=== PATIENT | male | born 1990 | race Caucasian/White ===

== ENCOUNTER 2017-08-11 21:16 | Inpatient (IN) | payer OTHER ==
[~2017-08-11] VITALS: Ht 175.3 cm; Wt 67.4 kg
[~2017-08-11 21:16] MED LIST: LATU80TA PO
[2017-08-11 21:18] VITALS: BP 143/83; PULSE 134; RESP 20; TEMP 98.6; O2SAT 100
[2017-08-11] MEDS ORDERED: LURA1TAB2 PO (21:38)
[2017-08-11] MEDS ORDERED: SODIUM CHLOR 0.9% 1000 ML INJ 1,000 ML IV SCH (21:49)
--- NOTE | 2017-08-11 21:52 | PD ---
HPI Chief Complaint: Psychiatric Symptoms Time Seen by Provider: 21:29 Travel History International Travel<30 days: No Contact w/Intl Traveler<30days: No Traveled to known affect area: No History of Present Illness HPI Patient comes in with parents requesting voluntary psychiatric evaluation. Patient denies any complaints or concerns. States he feels fine. Denies any homicidal or suicidal ideations. Denies any chest pain, shortness of breath, fevers, no pain, headaches, numbness or tingling anywhere. Patient mother reports patient was on medication that was prescribed last year for similar symptoms. Patient has been out of his medication since November secondary to losing his insurance. Mother states he's been doing fine until the last couple of days when he is been acting similar to he was a year ago when symptoms began. Mother reports patient is been acting inappropriately and will take off running down the street for no reason. [facility] Past Medical History Diabetes: No Diminished Hearing: No Insomnia: Yes Psychiatric: Yes (PREVIOUS PSYCH ADMISSION, BIPOLAR, SCHITZOPHRENIA) Social History Alcohol Use: No Tobacco Use: No Substance Use: No Allergies-Medications (Allergen,Severity, Reaction): Coded Allergies: No Known Allergies (Unverified , 06/26/15) Reported Meds & Prescriptions Reported Meds & Active Scripts Active Reported Latuda (Lurasidone) 60 Mg Tab 60 Mg PO DAILY Review of Systems Except as stated in HPI: all other systems reviewed are Neg Physical Exam Narrative GENERAL: Well-developed, well nourished, in no acute distress, and non-ill appearing. SKIN: Focused skin assessment warm and dry. HEAD: Atraumatic. Normocephalic. EYES: Pupils equal and round. EOMI. No scleral icterus. No injection or drainage. ENT: No nasal bleeding or discharge. Mucous membranes pink and moist. NECK: Trachea midline. No JVD. Supple. No nuclear rigidity. CARDIOVASCULAR: Regular rate and rhythm. No murmur appreciated. RESPIRATORY: No accessory muscle use. No respiratory distress. Clear to auscultation. Breath sounds equal bilaterally. MUSCULOSKELETAL: No obvious deformities. No clubbing. No cyanosis. No edema. Full range of motion. NEUROLOGICAL: Awake and alert. No obvious cranial nerve deficits. Motor grossly within normal limits. Normal speech. PSYCHIATRIC: Appropriate mood and affect; insight and judgment normal. Data Data Last Documented VS Vital Signs Date Time Temp Pulse Resp B/P (MAP) Pulse Ox O2 Delivery O2 Flow Rate FiO2 08/11/17 23:09 98 Room Air 08/11/17 21:18 98.6 134 20 Orders Orders Complete Blood Count With Diff (08/11/17 21:39) Comprehensive Metabolic Panel (08/11/17 21:39) Psych Screen (08/11/17 21:39) Drug Screen, Random Urine (08/11/17 21:39) Alcohol (Ethanol) (08/11/17 21:39) Salicylates (Aspirin) (08/11/17 21:39) Tylenol (Acetaminophen) (08/11/17 21:39) Iv Access Insert/Monitor (08/11/17 21:49) Ecg Monitoring (08/11/17 21:49) Oximetry (08/11/17 21:49) Sodium Chlor 0.9% 1000 Ml Inj (Ns 1000 M (08/11/17 21:49) Sodium Chloride 0.9% Flush (Ns Flush) (08/11/17 22:00) Potassium Chloride (Kcl) (08/11/17 23:30) Lorazepam (Ativan) (08/11/17 23:30) Labs Laboratory Tests Test 08/11/17 21:50 08/11/17 23:40 White Blood Count 8.4 TH/MM3 Red Blood Count 4.95 MIL/MM3 Hemoglobin 14.6 GM/DL Hematocrit 42.0 % Mean Corpuscular Volume 84.8 FL Mean Corpuscular Hemoglobin 29.5 PG Mean Corpuscular Hemoglobin Concent 34.7 % Red Cell Distribution Width 12.8 % Platelet Count 247 TH/MM3 Mean Platelet Volume 7.9 FL Neutrophils (%) (Auto) 69.4 % Lymphocytes (%) (Auto) 21.8 % Monocytes (%) (Auto) 8.2 % Eosinophils (%) (Auto) 0.1 % Basophils (%) (Auto) 0.5 % Neutrophils # (Auto) 5.8 TH/MM3 Lymphocytes # (Auto) 1.8 TH/MM3 Monocytes # (Auto) 0.7 TH/MM3 Eosinophils # (Auto) 0.0 TH/MM3 Basophils # (Auto) 0.0 TH/MM3 CBC Comment DIFF FINAL Differential Comment Blood Urea Nitrogen 8 MG/DL Creatinine 1.09 MG/DL Random Glucose 110 MG/DL Total Protein 7.5 GM/DL Albumin 4.7 GM/DL Calcium Level 9.3 MG/DL Alkaline Phosphatase 71 U/L Aspartate Amino Transf (AST/SGOT) 14 U/L Alanine Aminotransferase (ALT/SGPT) 14 U/L Total Bilirubin 0.8 MG/DL Sodium Level 140 MEQ/L Potassium Level 3.0 MEQ/L Chloride Level 104 MEQ/L Carbon Dioxide Level 25.2 MEQ/L Anion Gap 11 MEQ/L Estimat Glomerular Filtration Rate 82 ML/MIN Salicylates Level LESS THAN 1.7 MG/DL Acetaminophen Level LESS THAN 2.0 MCG/ML Ethyl Alcohol Level LESS THAN 3 MG/DL Urine Opiates Screen NEG Urine Barbiturates Screen NEG Urine Amphetamines Screen NEG Urine Benzodiazepines Screen NEG Urine Cocaine Screen NEG Urine Cannabinoids Screen NEG MDM Medical Decision Making Medical Screen Exam Complete: Yes Emergency Medical Condition: Yes Differential Diagnosis Acute psychosis, schizophrenia, anxiety, metabolic disturbance, substance induced mood disorder, nonspecific mood disorder, other Narrative Course Patient was seen and examined. Labs were obtained and reviewed. Patient potassium was replaced with oral potassium. Patient medically cleared for further treatment and evaluation by psych. Final disposition per psych. Diagnosis Primary Impression: Medical clearance for psychiatric admission Condition: Stable Marcin Nicole Aug 11, 2017 21:52
[2017-08-11] MEDS ORDERED: SODIUM CHLORIDE 0.9% FLUSH 10 ML FLUSH IV FLUSH PRN (22:00)
[2017-08-11 22:36] LABS: AUTOMATED NEUTROPHIL # 5.8 TH/MM3 (1.8-7.7); BASOPHIL % 0.5 % (0.0-2.0); EOSINOPHIL % 0.1 % (0.0-4.0); HEMO FLAGS DIFF FINAL; LYMPH % 21.8 % (9.0-44.0); LYMPHOCYTE # 1.8 TH/MM3 (1.0-4.8); MEAN CELL VOLUME 84.8 FL (80.0-100.0); MEAN CORPUSCULAR HEMOGLOBIN 29.5 PG (27.0-34.0); MEAN CORPUSCULAR HGB CONC 34.7 % (32.0-36.0); MONO % 8.2 % (0.0-8.0); NEUT % 69.4 % (16.0-70.0); PLATELET COUNT 247 TH/MM3 (150-450); RED BLOOD COUNT 4.95 MIL/MM3 (4.50-5.90); RED CELL DISTRIBUTION WIDTH 12.8 % (11.6-17.2); WHITE BLOOD COUNT 8.4 TH/MM3 (4.0-11.0)
[2017-08-11 22:50] LABS: ALCOHOL LESS THAN 3 MG/DL (0-5); ALT (GPT) 14 U/L (12-78); ANION GAP 11 MEQ/L (5-15); AST (GOT) 14 U/L (15-37); BICARBONATE 25.2 MEQ/L (21.0-32.0); BLOOD UREA NITROGEN 8 MG/DL (7-18); CHLORIDE 104 MEQ/L (98-107); GLOMERULAR FILTRATION RATE 82 ML/MIN (>89); SODIUM (NA) 140 MEQ/L (136-145)
[2017-08-11 22:52] LABS: ALKALINE PHOSPHATASE 71 U/L (45-117); TOTAL BILIRUBIN ADULT 0.8 MG/DL (0.2-1.0)
[2017-08-11 22:57] LABS: ACETAMINOPHEN LESS THAN 2.0 MCG/ML (10.0-30.0)
[2017-08-11 23:09] VITALS: O2SAT 98
[2017-08-11] MEDS ORDERED: POTASSIUM CHLORIDE 20 MEQ CONTROLLED RELEASE TAB PO ONE (23:30)
[2017-08-11] MEDS ORDERED: LORazepam 1 MG TAB PO ONE (23:30)
[2017-08-12 00:32] VITALS: BP 133/80; PULSE 125; RESP 18; TEMP 99.2; O2SAT 98
[2017-08-12] MEDS ORDERED: OLANZapine ODT 10 MG TAB PO ONE ×2 (01:30→22:15)
--- NOTE | 2017-08-12 01:30 | PD ---
Data Data Last Documented VS Vital Signs Date Time Temp Pulse Resp B/P (MAP) Pulse Ox O2 Delivery O2 Flow Rate FiO2 08/12/17 00:32 99.2 125 18 133/80 (97) 98 Room Air Orders Orders Complete Blood Count With Diff (08/11/17 21:39) Comprehensive Metabolic Panel (08/11/17 21:39) Psych Screen (08/11/17 21:39) Drug Screen, Random Urine (08/11/17 21:39) Alcohol (Ethanol) (08/11/17 21:39) Salicylates (Aspirin) (08/11/17 21:39) Tylenol (Acetaminophen) (08/11/17 21:39) Iv Access Insert/Monitor (08/11/17 21:49) Ecg Monitoring (08/11/17 21:49) Oximetry (08/11/17 21:49) Sodium Chlor 0.9% 1000 Ml Inj (Ns 1000 M (08/11/17 21:49) Sodium Chloride 0.9% Flush (Ns Flush) (08/11/17 22:00) Potassium Chloride (Kcl) (08/11/17 23:30) Lorazepam (Ativan) (08/11/17 23:30) Olanzapine Odt (Zyprexa Zydis Odt) (08/12/17 01:30) Labs Laboratory Tests Test 08/11/17 21:50 08/11/17 23:40 White Blood Count 8.4 TH/MM3 Red Blood Count 4.95 MIL/MM3 Hemoglobin 14.6 GM/DL Hematocrit 42.0 % Mean Corpuscular Volume 84.8 FL Mean Corpuscular Hemoglobin 29.5 PG Mean Corpuscular Hemoglobin Concent 34.7 % Red Cell Distribution Width 12.8 % Platelet Count 247 TH/MM3 Mean Platelet Volume 7.9 FL Neutrophils (%) (Auto) 69.4 % Lymphocytes (%) (Auto) 21.8 % Monocytes (%) (Auto) 8.2 % Eosinophils (%) (Auto) 0.1 % Basophils (%) (Auto) 0.5 % Neutrophils # (Auto) 5.8 TH/MM3 Lymphocytes # (Auto) 1.8 TH/MM3 Monocytes # (Auto) 0.7 TH/MM3 Eosinophils # (Auto) 0.0 TH/MM3 Basophils # (Auto) 0.0 TH/MM3 CBC Comment DIFF FINAL Differential Comment Blood Urea Nitrogen 8 MG/DL Creatinine 1.09 MG/DL Random Glucose 110 MG/DL Total Protein 7.5 GM/DL Albumin 4.7 GM/DL Calcium Level 9.3 MG/DL Alkaline Phosphatase 71 U/L Aspartate Amino Transf (AST/SGOT) 14 U/L Alanine Aminotransferase (ALT/SGPT) 14 U/L Total Bilirubin 0.8 MG/DL Sodium Level 140 MEQ/L Potassium Level 3.0 MEQ/L Chloride Level 104 MEQ/L Carbon Dioxide Level 25.2 MEQ/L Anion Gap 11 MEQ/L Estimat Glomerular Filtration Rate 82 ML/MIN Salicylates Level LESS THAN 1.7 MG/DL Acetaminophen Level LESS THAN 2.0 MCG/ML Ethyl Alcohol Level LESS THAN 3 MG/DL Urine Opiates Screen NEG Urine Barbiturates Screen NEG Urine Amphetamines Screen NEG Urine Benzodiazepines Screen NEG Urine Cocaine Screen NEG Urine Cannabinoids Screen NEG MDM Supervised Visit with INOCENTE: Yes Narrative Course 26-year-old male with a history of schizophrenia was brought in by parents for voluntary status parents of left and the patient wants to leave. After discussing with multiple providers including Moses Nicole PA-C as well as the psychiatric screener they believe that the patient is Mckeon act criteria. On my examination the patient is highly tangential states that he feels fine now. Hard to get him to stay on task and he doesn't really know why he is here. When confronted with the information that parents provided about him being very bizarre behavior he shrugs it off and says I'm fine now. 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 In my professional opinion the patient is unable to make his own decision to leave the hospital and therefore was placed under Mckeon act. Medically stable for psychiatric evaluation and remains in J pod. Diagnosis Primary Impression: Medical clearance for psychiatric admission Condition: Stable Musa Jiang MD Aug 12, 2017 01:30
[2017-08-12 02:17] VITALS: BP 121/65; PULSE 106; RESP 18; TEMP 98.9; O2SAT 100
[2017-08-12 06:17] VITALS: BP 129/75; PULSE 115; RESP 16; TEMP 98.2; O2SAT 99
--- NOTE | 2017-08-12 09:43 | MB ---
cc: EZEQUIEL PARADA DATE OF CONSULTATION: 08/12/2017 REQUESTING PHYSICIAN: Emergency department. REASON FOR CONSULTATION: Mckeon ACT HISTORY OF PRESENT ILLNESS Mr. Navarrete is a 26-year-old male with a chart history of schizophrenia, form disorder who presented on a voluntary basis with his parents for psychiatric evaluation. The patient's mother told the emergency department provider that the patient has been acting inappropriately and will take off running down the street for no reason. Reviewing the electronic medical record I note the patient was admitted here in August 2014 for first break psychosis. The patient seen and examined. Chart reviewed. Case discussed with nursing staff who reports that the patient has been wandering and internally stimulated while under observation in the J pod. On my evaluation this morning, the patient continues in this vein. He does appear frankly internally stimulated. Thought process is somewhat disorganized. He is fairly disheveled. He is tending to minimize the circumstances of his presentation here in service of obtaining discharge from the emergency room. He says that his mood is "really good." He maintains that he is sleeping and eating fine. He denies any paranoia, thought insertion or withdrawal. He denies any audiovisual hallucinations but appears internally stimulated. I can elicit no hypomanic or manic symptoms. No depressive symptoms elicited. He denies any other he does not report any suicidal or homicidal ideation but seems unreliable to contract for safety. The remainder of the psychiatric ROS is negative. The patient has no physical complaints. PAST PSYCHIATRIC HISTORY The patient reports a history of "psychotic problems." He is not currently under the care of a psychiatrist. He cannot remember when he was last psychiatrically admitted. When I ask about prior suicide attempts. The patient says "maybe we do." FAMILY HISTORY The patient reports a family history of psychotic illness in his brother and sister. CHEMICAL DEPENDENCY HISTORY: The patient denies any abuse of drugs or alcohol. SOCIAL HISTORY The patient reports that his that he lives with his mother and father but then goes onto say that they maybe have past on by now. He is single with no children. He is unsure how far he got in school. He does say that he use to work at a [employer] line. He denies any legal issues. Denies any access to guns or firearms. PAST MEDICAL HISTORY The patient denies any history of medical problems. REVIEW OF SYSTEMS Except as noted in HPI, this is negative. PHYSICAL EXAMINATION VITAL SIGNS: Temperature 98.2, pulse 115, respirations 16, blood pressure 129/75, pulse oximetry 99% on room air. IN GENERAL: Physical examination was completed by the emergency department provider. On my examination today, the patient appears to be in no acute physical distress. No motor abnormalities noted. Labs and vitals reviewed her laboratories reviewed: CBC unremarkable. CMP reveals mild hypokalemia at 3.0 status post now which has been repleted. GFR is also mildly decreased at 82. Urine toxicology negative. Alcohol level undetectable. MENTAL STATUS EXAM The patient is in hospital attire. He is disheveled. He is awake and alert and oriented to person and hospital at least. No abnormal motor movements noted. Speech is rambling and vague but within normal limits for rate, tone and volume. Language and fund of knowledge seem approximately average, although assessment is somewhat difficult because of his psychotic symptoms. Memory seems poor presently but this is also likely impacted by his psychotic symptoms. The patient reports good mood, but affect is blunted, tending towards flat. Thought process circumstantial, at times somewhat frankly disorganized. No delusions elicited. The patient denies audiovisual hallucinations but appears frankly internally stimulated. No reported suicidal or homicidal ideation but the patient seems unreliable to contract for safety. Insight and judgment poor. ASSESSMENT/PLAN 1. Other psychotic disorder, F 28, rule out schizophrenia. This is a 26-year-old male with psychiatric history as detailed above who presents on a voluntary basis for psychiatric evaluation. He was placed under a Mckeon ACT by the emergency department provider. On my evaluation today, the patient remains floridly psychotic. I do note that the patient required Zyprexa IM overnight. I see no indication to lift the Mckeon ACT at this time. 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 He will be placed on the ACT wait list by the nursing staff with plans to transfer to ACT under the Mckeon ACT for psychiatric stabilization once a bed is available. Thank you very much for this consultation. Ezequiel Perry /7:31 AM /9:20 AM PABLITO
[2017-08-12 13:42] VITALS: BP 135/86; PULSE 107; RESP 17; TEMP 97.6; O2SAT 98
[2017-08-12 22:10] VITALS: BP 192/97; PULSE 118; RESP 17; TEMP 99; O2SAT 100
[2017-08-13 02:17] VITALS: RESP 16
[2017-08-13 06:41] VITALS: BP 130/77; PULSE 92; RESP 17; TEMP 98.5; O2SAT 99
[2017-08-13 10:58] VITALS: BP 151/88; PULSE 108; RESP 18
[2017-08-13] MEDS ORDERED: ACETAMINOPHEN 325 MG TAB PO PRN (15:30)
[2017-08-13] MEDS ORDERED: LORazepam 2 MG/ML VIAL IM PRN (15:30)
[2017-08-13] MEDS ORDERED: traZODone HCL 50 MG TAB PO PRN (15:30)
[2017-08-13] MEDS ORDERED: LORazepam 1 MG TAB PO PRN (15:30)
[2017-08-13] MEDS ORDERED: ALUMINUM/MAGNESIUM/SIMETH 30 ML CUP PO PRN (15:30)
[2017-08-13] MEDS ORDERED: diphenhydrAMINE HCL 50 MG CAP PO PRN (15:30)
[2017-08-13] MEDS ORDERED: diphenhydrAMINE HCL 50 MG/ML VIAL IM PRN (15:30)
[2017-08-13] MEDS ORDERED: MAGNESIUM HYDROXIDE SUSP 30 ML CUP PO PRN (15:30)
[2017-08-13 16:32] VITALS: BP 130/78; PULSE 95; RESP 18; O2SAT 99
--- NOTE | 2017-08-13 20:46 | EKG ---
Date Performed: 08/13/2017 Time Performed: 16:46:31 PTAGE: 26 years EKG: Sinus rhythm BORDERLINE RIGHT AXIS DEVIATION BORDERLINE ECG PREVIOUS TRACING : 08/31/2014 17.10 No significant change from previous tracing noted. DOCTOR: Ed Li Interpretating Date/Time 08/13/2017 20:44:44
[2017-08-13] MEDS ORDERED: OLANZapine ODT 10 MG TAB PO SCH (21:00)
[2017-08-14 06:04] VITALS: BP 122/65; PULSE 77; RESP 17; TEMP 97.8; O2SAT 100
[2017-08-14 07:52] LABS: ANION GAP 6 MEQ/L (5-15); BICARBONATE 29.7 MEQ/L (21.0-32.0); BLOOD UREA NITROGEN 9 MG/DL (7-18); CHLORIDE 106 MEQ/L (98-107); GLOMERULAR FILTRATION RATE 84 ML/MIN (>89); POTASSIUM 3.8 MEQ/L (3.5-5.1); SODIUM (NA) 142 MEQ/L (136-145)
[2017-08-14 07:55] LABS: HDL CHOLESTEROL 45.3 MG/DL (40.0-60.0); LDL CHOLESTEROL 54 MG/DL (0-99)
[2017-08-14] MEDS ORDERED: NICOTINE 21 MG/24 HR PATCH T-DERMAL SCH (09:00)
[2017-08-14] MEDS ORDERED: REMOVE OLD PATCH T-DERMAL SCH (09:00)
[2017-08-14] MEDS ORDERED: INFLUENZA VIRUS VACCINE (QUADRIVALENT) 0.5 ML SYR IM ONE (10:00)
--- NOTE | 2017-08-14 10:09 | HHI.HP ---
Provisional Diagnosis Admission Date Aug 13, 2017 at 15:25 Lind[place] I. 1. Other psychotic disorder, now stabilized Lind[place] II. Deferred Certification of Person's Competence To Provide Express and Informed Consent I have personally examined Juliocesar Navarrete , a person being served at [facility] on, Aug 14, 2017 10:06. Express and informed consent means consent voluntarily given in writing, by a competent person, after sufficient explanation and disclosure of the subject matter involved to enable the person to make a knowing and willful decision without any element of force, fraud, deceit, duress, or other form of constraint or coercion. This person is 18 years of age or older, is not now known to be incompetent to consent to treatment with a guardian advocate, and does not have a health care surrogate or proxy currently making medical treatment decisions. I have found this person to be one of the following: [x] Competent to provide express and informed consent, as defined above, for voluntary admission to this facility and is competent to provide express and informed consent for treatment. He/she has the consistent capacity to make well reasoned, willful, and knowing decisions concerning his or her medical or mental health treatment. The person fully and consistently understands the purpose of the admission for examination/placement and is fully capable of personally exercising all rights [place] Incompetent to provide express and informed consent to voluntary admission, and this is incompetent to provide express and informed consent to treatment. The person must be transferred to involuntary status and a petition for a guardian advocate filed with the Circuit Court. [] Refusing to provide express and informed consent to voluntary admission but is competent to provide express and informed consent for treatment. The person must be discharged or transferred to involuntary status. Form shall be completed within 24 hours of a person's arrival at the receiving facility and filed in the clinical record of each person: 1. Admitted on a voluntary basis 2. Permitted to provide express and informed consent to his/her own treatment 3. Allowed to transfer from involuntary to voluntary status 4. Prior to permitting a person to consent to his or her own treatment after having been previously found incompetent to consent to treatment. History of Present Illness Capacity: Has Capacity Psych Chief Complaint: Psychosis HPI From my initial consultation 08/12: HISTORY OF PRESENT ILLNESS Mr. Navarrete is a 26-year-old male with a chart history of [schizophreniform] disorder who presented on a voluntary basis with his parents for psychiatric evaluation. The patient's mother told the emergency department provider that the patient has been acting inappropriately and will take off running down the street for no reason. Reviewing the electronic medical record I note the patient was admitted here in August 2014 for first break psychosis. The patient seen and examined. Chart reviewed. Case discussed with nursing staff who reports that the patient has been wandering and internally stimulated while under observation in the J pod. On my evaluation this morning, the patient continues in this vein. He does appear frankly internally stimulated. Thought process is somewhat disorganized. He is fairly disheveled. He is tending to minimize the circumstances of his presentation here in service of obtaining discharge from the emergency room. He says that his mood is "really good." He maintains that he is sleeping and eating fine. He denies any paranoia, thought insertion or withdrawal. He denies any audiovisual hallucinations but appears internally stimulated. I can elicit no hypomanic or manic symptoms. No depressive symptoms elicited. He denies any other he does not report any suicidal or homicidal ideation but seems unreliable to contract for safety. The remainder of the psychiatric ROS is negative. The patient has no physical complaints. PAST PSYCHIATRIC HISTORY The patient reports a history of "psychotic problems." He is not currently under the care of a psychiatrist. He cannot remember when he was last psychiatrically admitted. When I ask about prior suicide attempts. The patient says "maybe we do." FAMILY HISTORY The patient reports a family history of psychotic illness in his brother and sister. CHEMICAL DEPENDENCY HISTORY: The patient denies any abuse of drugs or alcohol. SOCIAL HISTORY The patient reports that his that he lives with his mother and father but then goes onto say that they maybe have past on by now. He is single with no children. He is unsure how far he got in school. He does say that he use to work at a [employer]. He denies any legal issues. Denies any access to guns or firearms. On my examination today, 08/14: Patient seen and examined with nurse. Chart reviewed. Patient was started on Zyprexa 10 mg at bedtime in the ED by the ED provider, and I continued this last night. Case discussed with nursing staff. Patient has been very well behaved on the unit and cooperative with care. There has been no evidence of any suicidality or homicidality on the inpatient unit. Case discussed with counselor. Patient's Mckeon act will overnight tonight. For me today, the patient is calm and cooperative with exam. His thought process is linear and there is no evidence of ongoing impairment in reality construction. He is requesting discharge from the inpatient psychiatric unit today. He denies any suicidal or homicidal ideation, intent or plan on direct questioning and contracts for safety. Mood is stable and I can elicit no depressive or hypomanic/manic symptoms. He reports that he slept well overnight. He denies any audiovisual hallucinations. I can elicit no delusional material from the patient. He denies any side effects from medications, and he is agreeable to continuing Zyprexa on an outpatient basis. He has no physical complaints. Review of Systems Except as stated in HPI: all other systems reviewed are Neg Past Psych History Psychological trauma history No reported trauma history to me Violence risk - others (6 mos) Lower imminent risk. Denies homicidal ideation. No known history of violent behavior. No unstable mental illness in this patient at this time that would confer risk for violence. No impairment in reality construction, no decompensated psychosis. Violence risk - self (6 mos) Lower imminent risk. Denies suicidal ideation. No reported history of previous suicide attempts. No unstable mental illness that would confer risk for suicide. Substance Abuse History Drugs/Alcohol past 12 months See above Past Family Social History Coded Allergies: No Known Allergies (Unverified Allergy, Unknown, 08/13/17) Past Medical History See electronic medical record Active Scripts Olanzapine (Zyprexa) 10 Mg Tab, 10 MG PO HS for Mental Health for 15 Days, TAB 1 Refill Prov:Ezequiel Escoto MD 08/14/17 Reported Medications Lurasidone (Latuda) 60 Mg Tab, 60 MG PO DAILY, #30 TAB 0 Refills 08/11/17 Discontinued Scripts Lurasidone Hcl (Latuda) 80 Mg Tab, 80 MG PO DAILY for mental health, #30 TAB 2 Refills Prov:Romario Adams MD 06/26/15 Current Medications Medications (Trade) Dose Ordered Sig/Christina Route Start Time Stop Time Status Last Admin (NS Flush) 2 ml UNSCH PRN IV FLUSH 08/11/17 22:00 (Ativan) 1 mg Q6H PRN PO 08/13/17 15:30 (Ativan Inj) 1 mg Q6H PRN IM 08/13/17 15:30 (Benadryl) 50 mg Q6H PRN PO 08/13/17 15:30 (Benadryl Inj) 50 mg Q6H PRN IM 08/13/17 15:30 (Tylenol) 650 mg Q4H PRN PO 08/13/17 15:30 (Milk Of Magnesia Liq) 30 ml DAILY PRN PO 08/13/17 15:30 (Mag-Al Plus Susp Liq) 30 ml Q6H PRN PO 08/13/17 15:30 (Habitrol 21 Mg Patch.24 Hr) 1 patch DAILY T-DERMAL 08/14/17 09:00 (Desyrel) 50 mg HS PRN PO 08/13/17 15:30 Miscellaneous Information 1 DAILY T-DERMAL 08/14/17 09:00 (ZyPREXA ZYDIS ODT) 10 mg HS PO 08/13/17 21:00 08/13/17 21:39 Family Psych History See above Social History See above Patient's Strengths (min. 2) Good response to antipsychotic. Verbally fluent. Physical Exam Physical examination was completed by the ED provider. On my examination today , the patient appears to be at no physical distress. No hand tremor, no dystonia, no dyskinesia, no other motor abnormalities noted. Labs and vitals reviewed: Vital Signs Vital Signs Date Time Temp Pulse Resp B/P (MAP) Pulse Ox O2 Delivery O2 Flow Rate FiO2 08/14/17 06:04 97.8 77 17 122/65 (84) 100 08/13/17 10:58 Room Air Lab Results Item Value Date Time White Blood Count 8.4 TH/MM3 08/11/172149 Hemoglobin 14.6 GM/DL 08/11/172149 Platelet Count 247 TH/MM3 08/11/172149 Sodium Level 142 MEQ/L 08/14/17 0658 Potassium Level 3.8 MEQ/L 08/14/1758 Chloride Level 106 MEQ/L 08/14/17 0658 Carbon Dioxide Level 29.7 MEQ/L 08/14/17 0658 Blood Urea Nitrogen 9 MG/DL 08/14/17 0658 Creatinine 1.06 MG/DL 08/14/17 0658 Estimat Glomerular Filtration Rate 84 ML/MIN L 08/14/17 0658 Aspartate Amino Transf (AST/SGOT) 14 U/L L 08/11/170 Alanine Aminotransferase (ALT/SGPT) 14 U/L 08/11/172149 Alkaline Phosphatase 71 U/L 08/11/172149 Urine Opiates Screen NEG 08/11/17 2340 Urine Barbiturates Screen NEG 08/11/170 Urine Amphetamines Screen NEG 08/11/17 2340 Urine Benzodiazepines Screen NEG 08/11/170 Urine Cocaine Screen NEG 08/11/172339 Urine Cannabinoids Screen NEG 08/11/172339 Ethyl Alcohol Level LESS THAN 3 MG/DL 08/11/172149 Hemoglobin A1c is presently pending. Mental Status Examination Appearance: Appropriate (in hospital attire. Well groomed.) Consciousness: Alert Orientation: x4 Motor Activity: Normal gait Speech: Unremarkable Language: Adequate Fund of Knowledge: Adequate Attention and Concentration: Adequate Memory: Unremarkable Mood: Appropriate, Good Affect: Appropriate (full and reactive) Thought Process & Associations: Intact, Logical, Goal directed, Linear Thought Content: Appropriate Hallucination Type: None Delusion Type: None Suicidal Ideation: No Suicidal Plan: No Suicidal Intention: No Homicidal Ideation: No Homicidal Plan: No Homicidal Intention: No Insight: Fair Judgment: Adequate (fair) Assessment & Plan Problem List: (1) Psychosis ICD Codes: F29 - Psychosis Status: Acute Assessment & Plan 26-year-old male with psychiatric history as detailed above who presented initially under the Mckeon act. Mckeon act will this evening. Patient was started on Zyprexa in the emergency department, and his presenting psychosis has stabilized nicely on this medication. Presently, there is no unstable mental illness as defined under the Mckeon act in this patient. He is denying suicidal or homicidal ideation and is now reliable to contract for safety. He appears to be attending to his basic needs. Synthesizing this information and weighing the relevant factors, I conciliation court judge that the patient does not meet criteria for involuntary psychiatric hospitalization. I have recommended that he remain on the unit voluntarily for further observation. I have suggested an ancillary goal of remaining on the unit might be to transition to another antipsychotic with a more readily available long-acting injectable formulation as I think he might benefit from such an agent. However , the patient declines to remain on the unit voluntarily; he wishes to continue with oral Zyprexa for now. I must therefore arrange for his discharge home in stable condition with psychiatric follow-up as arranged by counselor. I have instructed the counselor to reach out to the patient's parents with whom he lives with the patient's permission to discuss the case. Patient is to follow- up psychiatrically as arranged by counselor. Patient is also to follow-up with primary care. I have provided the patient with a 15 day supply of Zyprexa 10 mg at bedtime with one refill. I have counseled the patient regarding warning signs for need to return to the psychiatric emergency room as part of a general safety plan. This note serves also as my discharge summary. Request HC Surrog/Guard Advoc?: No Problem Qualifiers (1) Psychosis: Qualified Codes: F28 - Other psychotic disorder not due to a substance or known physiological condition Ezequiel Escoto MD Aug 14, 2017 10:09
[2017-08-14] MEDS ORDERED: ZYPR10TA PO (10:14)
--- NOTE | 2017-08-14 10:14 | HHI.DS ---
Psychiatry Discharge Summary Advance Directive: No Mental Health AdvanceDirective: No Admission Admission Date Aug 13, 2017 at 15:25 Admission Diagnosis: Tobacco Use In Past 30 Days: No Tobacco Past 30 Days Alcohol Use: Never Results Blood Pressure 122 / 65 Vital Signs Date Time Temp Pulse Resp B/P (MAP) Pulse Ox O2 Delivery O2 Flow Rate FiO2 08/14/17 06:04 97.8 77 17 122/65 (84) 100 08/13/17 10:58 Room Air Laboratory Tests Test 08/11/17 21:50 08/11/17 23:40 08/14/17 06:58 Monocytes (%) (Auto) 8.2 % (0.0-8.0) Random Glucose 110 MG/DL (74-106) Aspartate Amino Transf (AST/SGOT) 14 U/L (15-37) Potassium Level 3.0 MEQ/L (3.5-5.1) Estimat Glomerular Filtration Rate 82 ML/MIN (>89) 84 ML/MIN (>89) Salicylates Level LESS THAN 1.7 MG/DL Acetaminophen Level LESS THAN 2.0 MCG/ML Cholesterol Level 110 MG/DL (120-200) Laboratory Results Test 08/14/17 06:58 Cholesterol Level 110 MG/DL (120-200) HDL Cholesterol 45.3 MG/DL (40.0-60.0) LDL Cholesterol 54 MG/DL (0-99) Triglycerides Level 52 MG/DL (42-150) Medications Approp Antipsych med options 1 - Minimum of three failed multiple trials of monotherapy. 2 - Documented plan to taper to monotherapy due to previous use of multiple meds OR cross-taper in progress at D/C. 3 - Documentation of augmentation of Clozapine. 4 - Justification other than those listed in allowable values 1-3, document here : Discharge Pt Condition on Discharge: Stable Discharge Disposition: Discharge Home Discharge Instructions Diet Instructions: As Tolerated, No Restrictions Activities you can perform: Weight Bearing as Herbert Discharge/Advance Care Plan Goals to promote your health * To prevent worsening of your condition and complications * To maintain your health at the optimal level Directions to meet your goals Take your medications as prescribed Follow your dietary instruction Follow activity as directed Keep your appointments as scheduled Take your immunizations and boosters as scheduled If your symptoms worsen call your PCP, if no PCP go to Urgent Care Center or Emergency Room For 10/04 questions related to your inpatient stay or results of tests pending at discharge, please contact Dr. Ezequiel Escoto at Smoking is Dangerous to Your Health. Avoid second hand smoking Ezequiel Escoto MD Aug 14, 2017 10:14
[2017-08-14 16:20] LABS: HEMOGLOBIN A1a 1.2 %; HEMOGLOBIN A1b 0.8 %; HEMOGLOBIN Ao 86.2 %; HEMOGLOBIN F 0.9 %; HEMOGLOBIN LA1C 1.7 %; HEMOGLOBIN P3 3.3 %
[2017-08-14 18:28] VITALS: BP 120/58; PULSE 81; RESP 17; TEMP 98.7; O2SAT 100
== END 2017-08-14 20:19 | disposition home or self-care (01) | DRG 885 ==
LOC: NEPD 21:16 → NEDA 08-13 15:25 → H270 08-13 15:58
PROVIDERS: ADMIT Psychiatry & Neurology Psychiatry; ATTEND Psychiatry & Neurology Psychiatry
DX: F29 Unspecified psychosis not due to a substance or known physiological condition (principal); F20.81 Schizophreniform disorder; Z81.8 Family history of other mental and behavioral disorders
CPT/HCPCS: 80048; 80053; 80061; 80307; 83036; 85025; 93005; 99285